=== PATIENT | female | born 1945 | race Caucasian/White ===

== ENCOUNTER 2019-07-09 07:55 | Observation (INO) | payer MEDICARE ==
[2019-07-07 10:34] LABS: BASOPHILS % (AUTO) 0.7 % (0.0-5.0); EOSINOPHILS % (AUTO) 1.1 % (0.0-8.0); HEMATOCRIT 39.4 % (36-48); LYMPHOCYTES % (AUTO) 18.5 % (21.0-51.0); MEAN CORPUSCULAR HEMOGLOBIN 30.1 pg (27.0-33.0); MEAN CORPUSCULAR HGB CONC 32.5 g/dL (32.0-36.0); MEAN CORPUSCULAR VOLUME 92.7 fL (79-99); MONOCYTES % (AUTO) 6.7 % (3.0-13.0); NEUTROPHILS % (AUTO) 72.7 % (40.0-77.0); PLATELET COUNT (AUTO) 307 K/uL (130-400); RED BLOOD CELL COUNT(AUTO) 4.25 MIL/uL (4.00-5.50)
[2019-07-07 10:39] VITALS: BP 150/66
[2019-07-07 10:43] LABS: CREATININE 0.6 mg/dL (0.5-1.5)
[2019-07-07 10:44] LABS: PARTIAL THROMBOPLASTIN TIME 25.5 SEC (26.3-35.5); PROTHROMBIN TIME 10.5 SEC (9.6-11.6)
--- NOTE | 2019-07-08 16:00 | NUR ---
PATIENT STATED THAT SHE HAD HIVES POST AN XRAY MANY YRS AGO, SHE EATS SHELLFISH WITH NO ALLERGIC REACTIONS, NOTIFIED DR CRYSTAL, NO NEW ORDERS AT THIS TIME
[2019-07-09] VITALS (12 sets, daily range): BP systolic 115–164; BP diastolic 53–83
[~2019-07-09] VITALS: Ht 154.9 cm; Wt 52.1 kg
[~2019-07-09 07:55] MED LIST: SODIUM CHLORIDE 0.9% 1000ML 1,000 ML IV SCH; VERA40TA5 PO
--- NOTE | 2019-07-09 11:20 | NUR ---
to cath lab technologist PT TAKEN TO SLEEVE SEWER VIA BED, VOIDED PRIOR.
[2019-07-09] MEDS ORDERED: LIDOCAINE HCL 2% 20ML ONE ×2 (11:32→11:52)
[2019-07-09] MEDS ORDERED: MEPERIDINE-PF 25 MG/ML SYG ONE ×2 (11:32→12:49)
[2019-07-09] MEDS ORDERED: MIDAZOLAM HCL 1 MG/ML 2ML VIAL ONE ×2 (11:32→12:49)
[2019-07-09] MEDS ORDERED: HEPARIN SODIUM 1000UNIT/ML 10ML VIAL ONE (11:32)
[2019-07-09] MEDS ORDERED: ISOPROTERENOL HCL 0.2 MG/ML AMP/VIAL/BAG ONE (11:50)
--- NOTE | 2019-07-09 17:30 | NUR ---
RECEIVED FROM DAYPT. VIA BED. AAOX3, RESP.'S EVEN AND UNLABORED. DENIES ANY C/O AT THIS TIME. BILATERAL GROIN PUNCTURE SITES SOFT, DRSG.'S IN PLACE, D/I; NO ECCHYMOSIS OR HEMATOMA NOTED. REMINDED OF CONTINUED BR PER MD ORDERS, VERBALIZED UNDERSTANDING. CALL LIGHT WITHIN REACH, VERBALIZED ABILITY TO USE. SPOUSE AT BEDSIDE.
--- NOTE | 2019-07-09 17:52 | NUR ---
BR COMPLETED. BILATERAL GROINS UNCHANGED. ALLOWED TO SIT UP IN BED. CALL LIGHT WITHIN REACH. SPOUSE AT BEDSIDE.
--- NOTE | 2019-07-09 18:05 | NUR ---
Junie NAYAK NP, AT NURSE'S STATION MADE AWARE OF CONSULT.
[2019-07-10 03:00] VITALS: BP 129/85
[2019-07-10 05:35] LABS: BASOPHILS % (AUTO) 1.1 % (0.0-5.0); EOSINOPHILS % (AUTO) 2.4 % (0.0-8.0); HEMATOCRIT 32.3 % (36-48); LYMPHOCYTES % (AUTO) 19.9 % (21.0-51.0); MEAN CORPUSCULAR HEMOGLOBIN 30.2 pg (27.0-33.0); MEAN CORPUSCULAR HGB CONC 33.1 g/dL (32.0-36.0); MEAN CORPUSCULAR VOLUME 91.2 fL (79-99); MONOCYTES % (AUTO) 10.4 % (3.0-13.0); PLATELET COUNT (AUTO) 219 K/uL (130-400); RED BLOOD CELL COUNT(AUTO) 3.54 MIL/uL (4.00-5.50); RED CELL DISTRIBUTION WIDTH 13.6 % (11.0-15.5); WHITE BLOOD COUNT (AUTO) 4.6 K/uL (4.8-10.8)
[2019-07-10 05:55] LABS: CREATININE 0.5 mg/dL (0.5-1.5); POTASSIUM 4.1 mmol/L (3.5-5.1)
[2019-07-10 07:00] VITALS: BP 113/53
--- NOTE | 2019-07-10 10:30 | NUR ---
DISCHARGE DISCHARGE INSTRUCTIONS GIVEN TO PATIENT, VERBALIZED UNDERSTANDING. PATIENT HAS FOLLOW UP WITH DR CRYSTAL ON 07/16/19 AT 1:45PM. PATIENT MADE AWARE THAT VERAPAMIL HAS BEEN DISCONTINUED BY DR CRYSTAL. IV REMOVED COVERED WITH BANDAID. TELEPAK DISCONTINUED.
--- NOTE | 2019-07-10 15:57 | NUR ---
[id number] patient signed [facility] Letter. I faxed letter to [id number] and placed in chart under consent tab
== END 2019-07-10 10:50 | disposition home or self-care (01) ==
LOC: DAH 07:55 → DAHIP 07:56 → 2AH 17:33
PROVIDERS: ADMIT Internal Medicine; ATTEND Internal Medicine
DX: I47.1 Supraventricular tachycardia (principal); E78.5 Hyperlipidemia, unspecified; I10 Essential (primary) hypertension; Z96.653 Presence of artificial knee joint, bilateral; Z79.899 Other long term (current) drug therapy; Z88.2 Allergy status to sulfonamides
CPT/HCPCS: 36415 ×2; 80048 ×2; 85025 ×2; 85610; 85730; 93005; 93613; 93621; 93623; 93653; A4649 ×2; C1730 ×4; C1732; C1894 ×5; G0378 ×21; J1644 ×2; J2175 ×2; J2250 ×2; J3490 ×3; J7030; 99156; 99157